=== PATIENT | female | born 1975 | race Caucasian/White ===

== ENCOUNTER → 2020-09-20 | Outpatient (CLI) | payer MEDICARE | LOC: HEART CORB 12:30 | DX: I10 Essential (primary) hypertension (principal); R07.2 Precordial pain; R01.1 Cardiac murmur, unspecified; R94.39 Abnormal result of other cardiovascular function study; R93.1 Abnormal findings on diagnostic imaging of heart and coronary circulation | CPT/HCPCS: 93306 ==

== ENCOUNTER → 2021-12-11 | Outpatient (CLI) | payer BC, MEDICARE ==
[~2021-12-11] MED LIST: ALPRAZOLAM1 MG PO; ATORVASTATIN CA20 MG PO; COLACE 100MG C100 MG PO; HYDROCODON-ACE1 EAC6 PO; IBUPROFEN600 MG PO; LEVOTHYROXINE112 MCG PO; LIPITOR20 MG PO; MEDROXYPROGESTE10 MG PO; METOPROLOL SUCC25 MG PO; ONDANSETRON ODT8 MG SL; PROVERA10 MG PO; SERTRALINE HCL100 MG PO; TOPROL XL25 MG PO; VITAMIN D21250 MCG PO; VITAMIN D250 MCG PO; ZOLOFT100 MG PO
[2021-12-11 14:16] LABS: HEMOGLOBIN 9.3 gm/dl (12.3-15.3); RED BLOOD COUNT 4.22 M/UL (4.00-5.10); WHITE BLOOD COUNT 7.9 K/UL (4.5-11.0)
[2021-12-11 14:22] LABS: BUN/CREATININE RATIO 22 (0-10)
== END ==
LOC: OPSV2 12:30
PROVIDERS: Obstetrics & Gynecology
DX: Z01.818 Encounter for other preprocedural examination (principal); N93.9 Abnormal uterine and vaginal bleeding, unspecified
CPT/HCPCS: 36415; 80053; 81001; 85025; 93005

== ENCOUNTER → 2021-12-13 | Day surgery (SDC) | payer BC, MEDICARE | END | disposition home or self-care (01) | LOC: OR 07:50 | DX: N87.0 Mild cervical dysplasia (principal); I10 Essential (primary) hypertension; E03.9 Hypothyroidism, unspecified; Z88.8 Allergy status to other drugs, medicaments and biological substances | CPT/HCPCS: 84703; 93005; J1100; J1885; J2001; J2250; J2405; J2704; J3010 ==